=== PATIENT | male | born 1945 | race Caucasian/White ===

== ENCOUNTER 2017-06-30 08:58 | Emergency (ER) | payer MEDICARE, OTHER ==
[~2017-06-30] VITALS: Ht 177.8 cm; Wt 100.0 kg
[2017-06-30] MEDS ORDERED: CLONAZEPAM1 MG PO (09:20)
[2017-06-30] MEDS ORDERED: CARB/LEVO1 TA5 PO (09:21)
[2017-06-30] MEDS ORDERED: ELIQUIS5 MG PO (09:21)
[2017-06-30] MEDS ORDERED: METFORMIN500 MG PO (09:22)
[2017-06-30] MEDS ORDERED: FAMOTIDINE20 M1 PO (09:22)
[2017-06-30] MEDS ORDERED: VENTOLIN H108 MCG/AC IN (09:23)
[2017-06-30] MEDS ORDERED: VENLAFAXINE HCL75 M1 PO (09:24)
[2017-06-30] MEDS ORDERED: TRAZODONE50 MG PO (09:24)
[2017-06-30] MEDS ORDERED: PRIMIDONE50 MG PO (09:25)
[2017-06-30] MEDS ORDERED: METO25TAB PO (09:26)
[2017-06-30] MEDS ORDERED: AMANTADINE100 MG PO (09:27)
[2017-06-30] MEDS ORDERED: WELLBUTRIN XL300 MG PO (09:27)
[2017-06-30] MEDS ORDERED: AMLODIPINE5 MG PO (09:27)
[2017-06-30] MEDS ORDERED: ADVAIR DISK1 IN (09:28)
[2017-06-30] MEDS ORDERED: B121000 MCG PO (09:28)
[2017-06-30] MEDS ORDERED: ATORVASTATIN CA10 MG PO (09:29)
[2017-06-30] MEDS ORDERED: ROPINIROLE0.5 MG PO (09:30)
[2017-06-30] MEDS ORDERED: CEPACOL SORE TH1 LO4 (09:32)
[2017-06-30 09:57] LABS: HEMOGLOBIN 12.4 g/dl (14.0-18.0); IMMATURE GRANULOCYTES 1.2 % (0.0-1.0); MEAN CELL VOLUME 83.9 fL CALC (80.0-100.0); MEAN CORPUSCULAR HGB 27.4 pG CALC (26.0-32.0); MEAN CORPUSCULAR HGB CONC 32.6 g/L CALC (32.0-36.0); NEUT# 5.82 thou/uL (1.82-7.42); RED BLOOD COUNT 4.53 mill/uL (4.70-6.10); RED CELL DISTRI WIDTH 13.5 % (11.5-15.5)
[2017-06-30] MEDS ORDERED: ZITHROMAX250 MG PO (10:19)
[2017-06-30] MEDS ORDERED: MEDDOSEPAK PO (10:19)
[2017-06-30 10:30] VITALS: BP 129/64
== END 2017-06-30 10:30 | disposition home or self-care (01) ==
LOC: ED 08:58
PROVIDERS: Emergency Medicine
DX: J40 Bronchitis, not specified as acute or chronic (principal); J44.9 Chronic obstructive pulmonary disease, unspecified; I10 Essential (primary) hypertension; E11.9 Type 2 diabetes mellitus without complications; F32.9 Major depressive disorder, single episode, unspecified; F43.10 Post-traumatic stress disorder, unspecified; E78.5 Hyperlipidemia, unspecified; G24.01 Drug induced subacute dyskinesia; Z86.718 Personal history of other venous thrombosis and embolism

== ENCOUNTER 2017-08-09 17:35 | Emergency (ER) | payer MEDICARE, OTHER ==
[~2017-08-09] VITALS: Ht 177.8 cm; Wt 110.0 kg
[~2017-08-09 17:35] MED LIST: ADVAIR DISK1 IN; AMANTADINE100 MG PO; AMLODIPINE5 MG PO; ATORVASTATIN CA10 MG PO; B121000 MCG PO; CARB/LEVO1 TA5 PO; CEPACOL SORE TH1 LO4; CLONAZEPAM1 MG PO; ELIQUIS5 MG PO; FAMOTIDINE20 M1 PO; MEDDOSEPAK PO; METFORMIN500 MG PO; METO25TAB PO; PRIMIDONE50 MG PO; ROPINIROLE0.5 MG PO; TRAZODONE50 MG PO; VENLAFAXINE HCL75 M1 PO; VENTOLIN H108 MCG/AC IN; WELLBUTRIN XL300 MG PO; ZITHROMAX250 MG PO
[2017-08-09 18:18] LABS: HEMATOCRIT 39.9 % (39.0-50.0); HEMOGLOBIN 12.8 g/dl (14.0-18.0); IMMATURE GRANULOCYTES 0.6 % (0.0-1.0); MEAN CELL VOLUME 83.1 fL CALC (80.0-100.0); MEAN CORPUSCULAR HGB 26.7 pG CALC (26.0-32.0); MEAN CORPUSCULAR HGB CONC 32.1 g/L CALC (32.0-36.0); NEUT# 4.17 thou/uL (1.82-7.42); RED BLOOD COUNT 4.8 mill/uL (4.70-6.10); RED CELL DISTRI WIDTH 14.5 % (11.5-15.5)
[2017-08-09 18:19] LABS: URINE BILIRUBIN - DIPSTICK NEGATIVE (NEGATIVE); URINE BLOOD DIPSTICK NEGATIVE (NEGATIVE); URINE COLOR YELLOW; URINE GLUCOSE - DIPSTICK NEGATIVE (NEGATIVE); URINE KETONE NEGATIVE (NEGATIVE); URINE LEUK ESTERASE NEGATIVE (NEGATIVE); URINE NITRITE - DIPSTICK NEGATIVE (Negative); URINE PH 5.5 (4.5-8.0); URINE PROTEIN - DIPSTICK NEGATIVE (NEG-TRACE); URINE SPECIFIC GRAVITY >=1.030; URINE UROBILINOGEN - DIPSTICK 0.2 E.U./dL (0.2)
[2017-08-09 18:21] LABS: URINE CLARITY CLEAR
[2017-08-09] MEDS ORDERED: RHINOCORT NAB (18:39)
[2017-08-09] MEDS ORDERED: VENTOLIN HFA IN (18:44)
[2017-08-09 19:23] LABS: ALKALINE PHOSPHATASE 110 u/l (38-126); ANION GAP 13 (6-22 (CALC)); BILIRUBIN, TOTAL 0.5 mg/dL (0.0-1.4); BUN 17 mg/dL (8-23); BUN/CREATININE RATIO 27 (12-20 (CALC)); CARBON DIOXIDE 27 mmol/l (22-30); CHLORIDE 103 mmol/l (95-108); CREATININE 0.6 mg/dL (0.7-1.3); GFR > 60 ML/MIN (>=60 (CALC)); GFR FOR AFR.AMER. > 60 ML/MIN (>=60 (CALC)); POTASSIUM 4.2 mmol/l (3.5-5.1); SGOT/AST 20 u/l (19-48); SGPT/ALT 22 u/l (11-66); SODIUM 138 mmol/l (137-146); TOTAL PROTEIN 7.2 g/dL (6.3-8.2)
[2017-08-09 19:33] VITALS: BP 123/64
== END 2017-08-09 19:42 | disposition home or self-care (01) ==
LOC: ED 17:35
PROVIDERS: Emergency Medicine
DX: S20.212A Contusion of left front wall of thorax, initial encounter (principal); E11.9 Type 2 diabetes mellitus without complications; J44.9 Chronic obstructive pulmonary disease, unspecified; I10 Essential (primary) hypertension; E78.5 Hyperlipidemia, unspecified; I25.10 Atherosclerotic heart disease of native coronary artery without angina pectoris; W22.8XXA Striking against or struck by other objects, initial encounter; Y93.89 Activity, other specified; Y92.098 Other place in other non-institutional residence as the place of occurrence of the external cause; Z86.711 Personal history of pulmonary embolism; Z86.718 Personal history of other venous thrombosis and embolism

== ENCOUNTER 2017-12-21 17:30 | Emergency (ER) | payer MEDICARE, OTHER ==
[~2017-12-21] VITALS: Ht 177.8 cm; Wt 125.0 kg
[~2017-12-21 17:30] MED LIST changes: +RHINOCORT NAB; +VENTOLIN HFA IN
[2017-12-21 19:24] LABS: HEMOGLOBIN 12.6 g/dl (14.0-18.0); RED BLOOD COUNT 4.56 mill/uL (4.70-6.10)
[2017-12-21 19:25] LABS: HEMATOCRIT 38.3 % (39.0-50.0); IMMATURE GRANULOCYTES 0.5 % (0.0-5.0); MEAN CORPUSCULAR HGB 27.6 pG CALC (26.0-32.0); MEAN CORPUSCULAR HGB CONC 32.9 g/L CALC (32.0-36.0); NEUT# 3.73 thou/uL (1.82-7.42); RED CELL DISTRI WIDTH 15.6 % (11.5-15.5)
[2017-12-21 19:48] LABS: ALBUMIN 3.4 g/dL (3.2-5.0); ALKALINE PHOSPHATASE 107 u/l (38-126); ANION GAP 15 (6-22 (CALC)); BILIRUBIN, TOTAL 0.5 mg/dL (0.0-1.4); BUN 15 mg/dL (8-23); BUN/CREATININE RATIO 23 (12-20 (CALC)); CARBON DIOXIDE 21 mmol/l (22-30); CHLORIDE 104 mmol/l (95-108); CREATININE 0.7 mg/dL (0.7-1.3); GFR > 60 ML/MIN (>=60 (CALC)); GFR FOR AFR.AMER. > 60 ML/MIN (>=60 (CALC)); POTASSIUM 4.3 mmol/l (3.5-5.1); SGOT/AST 16 u/l (19-48); SODIUM 136 mmol/l (137-146); TOTAL PROTEIN 6.1 g/dL (6.3-8.2)
[2017-12-21] MEDS ORDERED: BACTRIM DS1 TAB PO (19:54)
[2017-12-21 20:24] VITALS: BP 127/69
== END 2017-12-21 20:24 | disposition home or self-care (01) ==
LOC: ED 17:30
PROVIDERS: Emergency Medicine
DX: T81.41XA Infection following a procedure, superficial incisional surgical site, initial encounter (principal); I10 Essential (primary) hypertension; E11.9 Type 2 diabetes mellitus without complications; F32.9 Major depressive disorder, single episode, unspecified; F43.10 Post-traumatic stress disorder, unspecified; G24.01 Drug induced subacute dyskinesia; I25.10 Atherosclerotic heart disease of native coronary artery without angina pectoris; E78.5 Hyperlipidemia, unspecified; B95.62 Methicillin resistant Staphylococcus aureus infection as the cause of diseases classified elsewhere; Y83.8 Other surgical procedures as the cause of abnormal reaction of the patient, or of later complication, without mention of misadventure at the time of the procedure; Z85.828 Personal history of other malignant neoplasm of skin; Z86.711 Personal history of pulmonary embolism; Z86.718 Personal history of other venous thrombosis and embolism

== ENCOUNTER 2018-01-24 11:51 | Emergency (ER) | payer MEDICARE, OTHER ==
[~2018-01-24] VITALS: Ht 177.8 cm; Wt 128.0 kg
[~2018-01-24 11:51] MED LIST changes: +BACTRIM DS1 TAB PO
[2018-01-24 12:38] LABS: HEMOGLOBIN 13.6 g/dl (14.0-18.0); IMMATURE GRANULOCYTES 0.5 % (0.0-5.0); MEAN CELL VOLUME 86.3 fL CALC (80.0-100.0); MEAN CORPUSCULAR HGB 28.6 pG CALC (26.0-32.0); MEAN CORPUSCULAR HGB CONC 33.2 g/L CALC (32.0-36.0); NEUT# 6.14 thou/uL (1.82-7.42); RED BLOOD COUNT 4.75 mill/uL (4.70-6.10); RED CELL DISTRI WIDTH 14.6 % (11.5-15.5)
[2018-01-24] MEDS ORDERED: SINEMET CR 50/200 PO (13:00)
[2018-01-24] MEDS ORDERED: LEVEMIR100 UNIT/M SC (13:08)
[2018-01-24] MEDS ORDERED: HUMALOG100 UNIT/M SC (13:09)
[2018-01-24] MEDS ORDERED: CLEOCIN150 MG PO (13:10)
[2018-01-24 13:21] VITALS: BP 146/86
== END 2018-01-24 13:34 | disposition home or self-care (01) ==
LOC: ED 11:51
PROVIDERS: Emergency Medicine
DX: S86.912A Strain of unspecified muscle(s) and tendon(s) at lower leg level, left leg, initial encounter (principal); M79.662 Pain in left lower leg; R22.42 Localized swelling, mass and lump, left lower limb; Z86.718 Personal history of other venous thrombosis and embolism; X58.XXXA Exposure to other specified factors, initial encounter; Y93.01 Activity, walking, marching and hiking; Y92.129 Unspecified place in nursing home as the place of occurrence of the external cause

== ENCOUNTER 2018-02-22 11:35 | Emergency (ER) | payer MEDICARE, OTHER ==
[~2018-02-22] VITALS: Ht 177.8 cm; Wt 110.0 kg
[~2018-02-22 11:35] MED LIST changes: +CLEOCIN150 MG PO; +HUMALOG100 UNIT/M SC; +LEVEMIR100 UNIT/M SC; +SINEMET CR 50/200 PO
--- NOTE | 2018-02-22 11:50 | NUR ---
BREATHING TREATMENT GIVEN BACK TO BACK USING A FACE MASK. BREATHING TECH. FOR GOOD DEPOSITION TO THE LUNGS.
[2018-02-22 12:10] LABS: HEMATOCRIT 40.6 % (39.0-50.0); HEMOGLOBIN 13.3 g/dl (14.0-18.0); IMMATURE GRANULOCYTES 0.9 % (0.0-5.0); MEAN CELL VOLUME 85.3 fL CALC (80.0-100.0); MEAN CORPUSCULAR HGB 27.9 pG CALC (26.0-32.0); MEAN CORPUSCULAR HGB CONC 32.8 g/L CALC (32.0-36.0); NEUT# 7.29 thou/uL (1.82-7.42); RED BLOOD COUNT 4.76 mill/uL (4.70-6.10); RED CELL DISTRI WIDTH 13.4 % (11.5-15.5)
[2018-02-22 12:27] LABS: INTERNATIONAL NORMALIZED RATIO 0.9 RATIO (0.7-1.3); PROTHROMBIN TIME 9.9 SECONDS (9.0-12.5)
[2018-02-22 12:33] LABS: ALBUMIN 3.6 g/dL (3.2-5.0); ALKALINE PHOSPHATASE 100 u/l (38-126); BILIRUBIN, TOTAL 0.7 mg/dL (0.0-1.4); BUN 16 mg/dL (8-23); BUN/CREATININE RATIO 19 (12-20 (CALC)); CARBON DIOXIDE 24 mmol/l (22-30); CHLORIDE 102 mmol/l (95-108); CREATININE 0.8 mg/dL (0.7-1.3); GFR > 60 ML/MIN (>=60 (CALC)); GFR FOR AFR.AMER. > 60 ML/MIN (>=60 (CALC)); SGOT/AST 23 u/l (19-48); SODIUM 139 mmol/l (137-146); TOTAL PROTEIN 6.6 g/dL (6.3-8.2)
[2018-02-22 12:36] LABS: ANION GAP 18 (6-22 (CALC)); POTASSIUM 5.2 mmol/l (3.5-5.1)
[2018-02-22 12:45] LABS: MYOGLOBIN 58 ng/mL (0 - 121)
[2018-02-22] MEDS ORDERED: CLINDAMYCIN HC150 MG PO (13:44)
[2018-02-22] MEDS ORDERED: MUCINEX600 MG PO (13:46)
[2018-02-22 14:28] VITALS: BP 132/68
== END 2018-02-22 14:38 | disposition home or self-care (01) ==
LOC: ED 11:35 → ED-I 13:21 → ED 14:38
PROVIDERS: Emergency Medicine
DX: J06.9 Acute upper respiratory infection, unspecified (principal); J44.9 Chronic obstructive pulmonary disease, unspecified; I10 Essential (primary) hypertension; E11.9 Type 2 diabetes mellitus without complications; F43.10 Post-traumatic stress disorder, unspecified; I25.10 Atherosclerotic heart disease of native coronary artery without angina pectoris; E78.5 Hyperlipidemia, unspecified; Z86.711 Personal history of pulmonary embolism; Z86.718 Personal history of other venous thrombosis and embolism; R06.02 Shortness of breath

== ENCOUNTER → 2018-04-04 | Outpatient (REF) | payer MEDICARE, OTHER ==
[~2018-04-04] MED LIST changes: +CLINDAMYCIN HC150 MG PO; +MUCINEX600 MG PO
== END | disposition home or self-care (01) ==
LOC: LAB 08:36
PROVIDERS: ATTEND Nurse Practitioner Family
DX: E11.49 Type 2 diabetes mellitus with other diabetic neurological complication (principal)

== ENCOUNTER 2018-07-15 10:27 | Observation (INO) | payer MEDICARE, OTHER ==
[~2018-07-15] VITALS: Ht 177.8 cm; Wt 124.0 kg
[2018-07-15 11:15] LABS: HEMATOCRIT 42.3 % (39.0-50.0); HEMOGLOBIN 13.7 g/dl (14.0-18.0); IMMATURE GRANULOCYTES 0.9 % (0.0-5.0); MEAN CELL VOLUME 82.1 fL CALC (80.0-100.0); MEAN CORPUSCULAR HGB 26.6 pG CALC (26.0-32.0); MEAN CORPUSCULAR HGB CONC 32.4 g/L CALC (32.0-36.0); NEUT# 9.31 thou/uL (1.82-7.42); RED BLOOD COUNT 5.15 mill/uL (4.70-6.10)
[2018-07-15 11:24] LABS: ALBUMIN 4.1 g/dL (3.2-5.0); ALKALINE PHOSPHATASE 108 u/l (38-126); ANION GAP 17 (6-22 (CALC)); BUN 19 mg/dL (8-23); BUN/CREATININE RATIO 24 (12-20 (CALC)); CARBON DIOXIDE 23 mmol/l (22-30); CHLORIDE 102 mmol/l (95-108); CREATININE 0.8 mg/dL (0.7-1.3); GFR > 60 ML/MIN (>=60 (CALC)); GFR FOR AFR.AMER. > 60 ML/MIN (>=60 (CALC)); LIPASE 220 u/l (23-300); POTASSIUM 4.3 mmol/l (3.5-5.1); SGOT/AST 17 u/l (19-48); SODIUM 138 mmol/l (137-146); TOTAL PROTEIN 6.8 g/dL (6.3-8.2)
[2018-07-15 11:25] LABS: BILIRUBIN, TOTAL 1.2 mg/dL (0.0-1.4)
[2018-07-15 14:40] LABS: URINE BILIRUBIN - DIPSTICK NEGATIVE (NEGATIVE); URINE BLOOD DIPSTICK NEGATIVE (NEGATIVE); URINE COLOR YELLOW; URINE GLUCOSE - DIPSTICK >=1000 mg/dL (NEGATIVE); URINE KETONE NEGATIVE (NEGATIVE); URINE LEUK ESTERASE NEGATIVE (Negative); URINE NITRITE - DIPSTICK NEGATIVE (Negative); URINE PROTEIN - DIPSTICK NEGATIVE (NEG-TRACE); URINE UROBILINOGEN - DIPSTICK 0.2 E.U./dL (0.2)
[2018-07-15 14:44] LABS: URINE CLARITY CLEAR
[2018-07-15 17:10] VITALS: BP 155/88
[2018-07-15 18:45] VITALS: BP 123/78
[2018-07-15 23:45] VITALS: BP 109/64
[2018-07-16] VITALS (13 sets, daily range): BP systolic 97–118; BP diastolic 58–75
[2018-07-16 06:21] LABS: ALBUMIN 3.6 g/dL (3.2-5.0); ALKALINE PHOSPHATASE 89 u/l (38-126); ANION GAP 15 (6-22 (CALC)); BILIRUBIN, TOTAL 1.6 mg/dL (0.0-1.4); BUN 16 mg/dL (8-23); BUN/CREATININE RATIO 23 (12-20 (CALC)); CALCULATED LDLCHOLESTEROL 45 mg/dL (62-129 (CALC)); CARBON DIOXIDE 23 mmol/l (22-30); CHLORIDE 105 mmol/l (95-108); CHOLESTEROL HDL RATIO 2.9 (<4.4 (CALC)); CREATININE 0.7 mg/dL (0.7-1.3); GFR > 60 ML/MIN (>=60 (CALC)); GFR FOR AFR.AMER. > 60 ML/MIN (>=60 (CALC)); HDL CHOLESTEROL 36 mg/dL (>=40); POTASSIUM 4.2 mmol/l (3.5-5.1); SGOT/AST 12 u/l (19-48); SODIUM 139 mmol/l (137-146); TOTAL CHOLESTEROL 105 mg/dl (0-199); TOTAL PROTEIN 6.3 g/dL (6.3-8.2); TOTAL TRIGLYCERIDES 117 mg/dl (30-149); VLDL CHOLESTROL 23 mg/dl (0-38 (CALC))
[2018-07-16 06:25] LABS: HEMATOCRIT 38.8 % (39.0-50.0); HEMOGLOBIN 12.6 g/dl (14.0-18.0); IMMATURE GRANULOCYTES 0.8 % (0.0-5.0); MEAN CELL VOLUME 82.7 fL CALC (80.0-100.0); MEAN CORPUSCULAR HGB 26.9 pG CALC (26.0-32.0); MEAN CORPUSCULAR HGB CONC 32.5 g/L CALC (32.0-36.0); NEUT# 7.93 thou/uL (1.82-7.42); RED BLOOD COUNT 4.69 mill/uL (4.70-6.10); RED CELL DISTRI WIDTH 14.2 % (11.5-15.5)
[2018-07-16] MEDS ORDERED: PROTONIX40 MG PO (08:11)
== END 2018-07-16 10:11 ==
LOC: ED 10:27 → ED-I 11:14 → ED 15:48 → ICU 15:49 → MS2 15:49 → ICU 07-16 00:20
PROVIDERS: Emergency Medicine; ADMIT Internal Medicine Geriatric Medicine; ATTEND Internal Medicine Geriatric Medicine
DX: R07.89 Other chest pain (principal); I10 Essential (primary) hypertension; E11.9 Type 2 diabetes mellitus without complications; I25.10 Atherosclerotic heart disease of native coronary artery without angina pectoris; J44.9 Chronic obstructive pulmonary disease, unspecified; F32.9 Major depressive disorder, single episode, unspecified; E78.5 Hyperlipidemia, unspecified; F41.1 Generalized anxiety disorder; K21.9 Gastro-esophageal reflux disease without esophagitis; K27.9 Peptic ulcer, site unspecified, unspecified as acute or chronic, without hemorrhage or perforation; E03.9 Hypothyroidism, unspecified; Z86.711 Personal history of pulmonary embolism; Z86.718 Personal history of other venous thrombosis and embolism; M47.812 Spondylosis without myelopathy or radiculopathy, cervical region; R06.02 Shortness of breath

== ENCOUNTER 2018-07-20 06:35 | Emergency (ER) | payer MEDICARE, OTHER ==
[~2018-07-20] VITALS: Ht 177.8 cm; Wt 123.2 kg
[~2018-07-20 06:35] MED LIST changes: +PROTONIX40 MG PO
[2018-07-20 07:17] LABS: HEMATOCRIT 39.1 % (39.0-50.0); HEMOGLOBIN 12.7 g/dl (14.0-18.0); IMMATURE GRANULOCYTES 0.5 % (0.0-5.0); MEAN CELL VOLUME 81.8 fL CALC (80.0-100.0); MEAN CORPUSCULAR HGB 26.6 pG CALC (26.0-32.0); MEAN CORPUSCULAR HGB CONC 32.5 g/L CALC (32.0-36.0); NEUT# 9.37 thou/uL (1.82-7.42); RED BLOOD COUNT 4.78 mill/uL (4.70-6.10); RED CELL DISTRI WIDTH 14.1 % (11.5-15.5)
[2018-07-20 07:28] LABS: ALBUMIN 4.1 g/dL (3.2-5.0); ALKALINE PHOSPHATASE 106 u/l (38-126); ANION GAP 16 (6-22 (CALC)); BUN 16 mg/dL (8-23); BUN/CREATININE RATIO 20 (12-20 (CALC)); CARBON DIOXIDE 24 mmol/l (22-30); CHLORIDE 101 mmol/l (95-108); CREATININE 0.8 mg/dL (0.7-1.3); GFR > 60 ML/MIN (>=60 (CALC)); GFR FOR AFR.AMER. > 60 ML/MIN (>=60 (CALC)); SGOT/AST 15 u/l (19-48); SODIUM 137 mmol/l (137-146); TOTAL PROTEIN 7.5 g/dL (6.3-8.2)
[2018-07-20 07:41] LABS: MYOGLOBIN 35 ng/mL (0 - 121)
[2018-07-20] MEDS ORDERED: ATORVASTATIN CA10 MG PO (08:43)
[2018-07-20] MEDS ORDERED: FUROSEMIDE40 MG PO (08:44)
[2018-07-20] MEDS ORDERED: FAMOTIDINE20 M3 PO (08:44)
[2018-07-20] MEDS ORDERED: WIXELA PO (08:46)
[2018-07-20] MEDS ORDERED: TEMAZEPAM15 MG PO (08:47)
[2018-07-20] MEDS ORDERED: [UNRECOGNIZED DRUG - OTHER] PO (08:48)
[2018-07-20] MEDS ORDERED: LEVOFLOXACIN750 MG PO (08:48)
[2018-07-20] MEDS ORDERED: MEDDOSEPAK PO (10:49)
[2018-07-20] MEDS ORDERED: ALBUTEROL SUL0.083 % IN (10:49)
[2018-07-20 11:47] VITALS: BP 119/58
== END 2018-07-20 11:47 | disposition home or self-care (01) ==
LOC: ED 06:35
PROVIDERS: Family Medicine
DX: J44.1 Chronic obstructive pulmonary disease with (acute) exacerbation (principal); R07.9 Chest pain, unspecified; I10 Essential (primary) hypertension; E11.9 Type 2 diabetes mellitus without complications; I25.10 Atherosclerotic heart disease of native coronary artery without angina pectoris; Z86.711 Personal history of pulmonary embolism; Z86.718 Personal history of other venous thrombosis and embolism
CPT/HCPCS: Q9967

== ENCOUNTER → 2018-08-23 | Day surgery (SDC) | payer MEDICARE, OTHER ==
[~2018-08-23] VITALS: Ht 177.8 cm; Wt 120.0 kg
[~2018-08-23] MED LIST changes: +ALBUTEROL SUL0.083 % IN; +FAMOTIDINE20 M3 PO; +FUROSEMIDE40 MG PO; +LEVOFLOXACIN750 MG PO; +TEMAZEPAM15 MG PO; +WIXELA PO; +[UNRECOGNIZED DRUG - OTHER] PO
[2018-08-23 12:01] VITALS: BP 123/77
== END | disposition home or self-care (01) ==
LOC: ENDO 08:26 → ORM 15:15 → ENDO 15:15
PROVIDERS: ATTEND Internal Medicine Gastroenterology
PROC: 0DBK8ZX Excision of Ascending Colon, Via Natural or Artificial Opening Endoscopic, Diagnostic (ICD-10-PCS; principal; 2018-08-23)
PROC: 0DBL8ZX Excision of Transverse Colon, Via Natural or Artificial Opening Endoscopic, Diagnostic (ICD-10-PCS; 2018-08-23)
PROC: 0DBN8ZX Excision of Sigmoid Colon, Via Natural or Artificial Opening Endoscopic, Diagnostic (ICD-10-PCS; 2018-08-23)
PROC: 0DBM8ZX Excision of Descending Colon, Via Natural or Artificial Opening Endoscopic, Diagnostic (ICD-10-PCS; 2018-08-23)
DX: D12.2 Benign neoplasm of ascending colon (principal); D12.4 Benign neoplasm of descending colon; D12.3 Benign neoplasm of transverse colon; D12.5 Benign neoplasm of sigmoid colon; K63.5 Polyp of colon; K64.4 Residual hemorrhoidal skin tags; I10 Essential (primary) hypertension; E11.9 Type 2 diabetes mellitus without complications; I25.10 Atherosclerotic heart disease of native coronary artery without angina pectoris; J44.9 Chronic obstructive pulmonary disease, unspecified; G20 Parkinson's disease

== ENCOUNTER 2018-10-18 11:44 | Emergency (ER) | payer MEDICARE, OTHER ==
[~2018-10-18] VITALS: Ht 177.8 cm; Wt 122.7 kg
[~2018-10-18 11:44] MED LIST changes: -FUROSEMIDE40 MG PO; +LASIX 40 MG TAB40 MG PO; -TEMAZEPAM15 MG PO; -VENTOLIN H108 MCG/AC IN; +VENTOLIN H108 MCG/AC PO
[2018-10-18] MEDS ORDERED: AMLODIPINE BESYL5 MG PO (13:00)
[2018-10-18] MEDS ORDERED: JANUVIA100 MG PO (13:00)
[2018-10-18] MEDS ORDERED: WIXELA INHUB 251 AER PO (13:03)
[2018-10-18] MEDS ORDERED: TEMAZEPAM15 MG PO (13:05)
[2018-10-18] MEDS ORDERED: TYLENOL325 M2 PO (13:05)
[2018-10-18] MEDS ORDERED: PROVENTIL0.083 % NEB (13:06)
[2018-10-18] MEDS ORDERED: HUMALOG KW100 UNIT/M SC (13:07)
[2018-10-18 14:45] VITALS: BP 129/79
== END 2018-10-18 14:45 | disposition home or self-care (01) ==
LOC: ED 11:44
DX: R60.0 Localized edema (principal); I10 Essential (primary) hypertension; E11.9 Type 2 diabetes mellitus without complications; I25.10 Atherosclerotic heart disease of native coronary artery without angina pectoris; Z79.4 Long term (current) use of insulin; Z79.01 Long term (current) use of anticoagulants; Z86.711 Personal history of pulmonary embolism; Z86.718 Personal history of other venous thrombosis and embolism; M79.605 Pain in left leg; M79.89 Other specified soft tissue disorders

== ENCOUNTER 2019-04-18 | Emergency (ER) | payer MEDICARE, OTHER ==
[~2019-04-18] MED LIST changes: +AMLODIPINE BESYL5 MG PO; +HUMALOG KW100 UNIT/M SC; +JANUVIA100 MG PO; +PROVENTIL0.083 % NEB; +TEMAZEPAM15 MG PO; +TYLENOL325 M2 PO; +WIXELA INHUB 251 AER PO
[2019-04-18 10:41] LABS: HEMATOCRIT 47.2 % (39.0-50.0); HEMOGLOBIN 14.9 g/dl (14.0-18.0); IMMATURE GRANULOCYTES 0.6 % (0.0-5.0); MEAN CELL VOLUME 81.4 fL CALC (80.0-100.0); MEAN CORPUSCULAR HGB 25.7 pG CALC (26.0-32.0); MEAN CORPUSCULAR HGB CONC 31.6 g/L CALC (32.0-36.0); NEUT# 3.4 thou/uL (1.82-7.42); RED BLOOD COUNT 5.8 mill/uL (4.70-6.10); RED CELL DISTRI WIDTH 15.2 % (11.5-15.5)
[2019-04-18 10:48] LABS: ANION GAP 15 (6-22 (CALC)); BUN 19 mg/dL (8-23); BUN/CREATININE RATIO 28 (12-20 (CALC)); CARBON DIOXIDE 20 mmol/l (22-30); CHLORIDE 106 mmol/l (95-108); CREATININE 0.7 mg/dL (0.7-1.3); GFR > 60 ML/MIN (>=60 (CALC)); GFR FOR AFR.AMER. > 60 ML/MIN (>=60 (CALC)); POTASSIUM 4.2 mmol/l (3.5-5.1); SODIUM 137 mmol/l (137-146)
[2019-04-18] MEDS ORDERED: PROAIR HFA IN (10:55)
[2019-04-18] MEDS ORDERED: TRULICITY0.75 MG/0. SC (10:56)
[2019-04-18] MEDS ORDERED: TRELEGY ELLIPTA1 AER IN (10:57)
[2019-04-18] MEDS ORDERED: FERR SULFATE325 MG PO (10:57)
[2019-04-18] MEDS ORDERED: JARDIANCE10 MG PO (10:58)
== END 2019-04-18 12:18 | disposition home or self-care (01) ==
PROVIDERS: Family Medicine
DX: J06.9 Acute upper respiratory infection, unspecified (principal); I10 Essential (primary) hypertension; E11.9 Type 2 diabetes mellitus without complications; J44.9 Chronic obstructive pulmonary disease, unspecified; I25.10 Atherosclerotic heart disease of native coronary artery without angina pectoris; Z86.711 Personal history of pulmonary embolism; Z86.718 Personal history of other venous thrombosis and embolism; Z79.4 Long term (current) use of insulin

== ENCOUNTER 2019-11-14 09:25 | Day surgery (SDC) | payer MEDICARE, OTHER ==
[~2019-11-14 09:25] MED LIST changes: +FERR SULFATE325 MG PO; +JARDIANCE10 MG PO; +PROAIR HFA IN; +TRELEGY ELLIPTA1 AER IN; +TRULICITY0.75 MG/0. SC
[2019-11-14 12:55] VITALS: BP 111/75
== END 2019-11-14 12:45 ==
LOC: ENDO 09:25 → ORM 12:00 → ENDO 12:00
PROVIDERS: ATTEND Internal Medicine Gastroenterology
PROC: 0DBL8ZX Excision of Transverse Colon, Via Natural or Artificial Opening Endoscopic, Diagnostic (ICD-10-PCS; principal; 2019-11-14)
PROC: 0DBH8ZX Excision of Cecum, Via Natural or Artificial Opening Endoscopic, Diagnostic (ICD-10-PCS; 2019-11-14)
PROC: 3E0H8GC Introduction of Other Therapeutic Substance into Lower GI, Via Natural or Artificial Opening Endoscopic (ICD-10-PCS; 2019-11-14)
PROC: 0DB48ZX Excision of Esophagogastric Junction, Via Natural or Artificial Opening Endoscopic, Diagnostic (ICD-10-PCS; 2019-11-14)
PROC: 0DB98ZX Excision of Duodenum, Via Natural or Artificial Opening Endoscopic, Diagnostic (ICD-10-PCS; 2019-11-14)
DX: K57.31 Diverticulosis of large intestine without perforation or abscess with bleeding (principal); D12.3 Benign neoplasm of transverse colon; D12.0 Benign neoplasm of cecum; K64.4 Residual hemorrhoidal skin tags; K64.8 Other hemorrhoids; K29.71 Gastritis, unspecified, with bleeding; D13.2 Benign neoplasm of duodenum; Q40.2 Other specified congenital malformations of stomach; K44.9 Diaphragmatic hernia without obstruction or gangrene; K22.70 Barrett's esophagus without dysplasia; I10 Essential (primary) hypertension; E11.9 Type 2 diabetes mellitus without complications; I25.10 Atherosclerotic heart disease of native coronary artery without angina pectoris; H54.62 Unqualified visual loss, left eye, normal vision right eye; F32.9 Major depressive disorder, single episode, unspecified; G20 Parkinson's disease; I49.9 Cardiac arrhythmia, unspecified; F41.9 Anxiety disorder, unspecified; J44.9 Chronic obstructive pulmonary disease, unspecified; Z79.84 Long term (current) use of oral hypoglycemic drugs; Z86.010 Personal history of colon polyps; Z20.828 Contact with and (suspected) exposure to other viral communicable diseases

== ENCOUNTER 2019-12-18 10:28 | Inpatient (IN) | payer MEDICARE, OTHER ==
[~2019-12-18] VITALS: Ht 177.8 cm; Wt 119.0 kg
--- NOTE | 2019-12-18 10:30 | NUR ---
PT TO ROOM VIA EMS
--- NOTE | 2019-12-18 11:05 | NUR ---
LAB RESULTS REFLECTING FLU & COVID POSITIVE RESULTS AT BEDSIDE WITH PT. RECEIVED FROM [facility].
[2019-12-18 11:07] LABS: HEMOGLOBIN 15.4 g/dl (14.0-18.0); IMMATURE GRANULOCYTES 0.4 % (0.0-5.0); MEAN CELL VOLUME 82.6 fL CALC (80.0-100.0); MEAN CORPUSCULAR HGB 27.1 pG CALC (26.0-32.0); MEAN CORPUSCULAR HGB CONC 32.8 g/dL CAL (32.0-36.0); NEUT# 3.96 thou/uL (1.82-7.42); RED BLOOD COUNT 5.69 mill/uL (4.70-6.10); RED CELL DISTRI WIDTH 14.1 % (11.5-15.5)
[2019-12-18 11:26] LABS: ALKALINE PHOSPHATASE 73 u/l (38-126); ANION GAP 16 (6-22 (CALC)); BILIRUBIN, TOTAL 0.8 mg/dL (0.0-1.4); BUN 15 mg/dL (8-23); BUN/CREATININE RATIO 20 (12-20 (CALC)); CARBON DIOXIDE 22 mmol/l (22-30); CHLORIDE 104 mmol/l (95-108); CREATININE 0.7 mg/dL (0.7-1.3); GFR > 60 ML/MIN (>=60 (CALC)); GFR FOR AFR.AMER. > 60 ML/MIN (>=60 (CALC)); POTASSIUM 4.1 mmol/l (3.5-5.1); SGOT/AST 22 u/l (19-48); SODIUM 139 mmol/l (137-146); TOTAL PROTEIN 7.1 g/dL (6.3-8.2)
--- NOTE | 2019-12-18 11:30 | NUR ---
PT RESTING WITH EYES CLOSED; NO S/SX OF DISTRESS NOTED; CALL GLASS WITHIN REACH; WILL CONTINUE TO MONITOR.
[2019-12-18 11:38] LABS: MYOGLOBIN 62 ng/mL (0 - 121)
--- NOTE | 2019-12-18 12:03 | NUR ---
PT WITH NO COMPLAINTS, STABLE ON MONITOR. BED IN LOW POSITION. CALL LIGHT WITHIN REACH.
--- NOTE | 2019-12-18 13:08 | NUR ---
IV FLUIDS INFUSING WITHOUT DIFFICULTY. BLANKET PROVIDED.
[2019-12-18 13:13] LABS: URINE BILIRUBIN - DIPSTICK NEGATIVE (NEGATIVE); URINE BLOOD DIPSTICK NEGATIVE (NEGATIVE); URINE COLOR YELLOW; URINE GLUCOSE - DIPSTICK 500 mg/dL (NEGATIVE); URINE KETONE TRACE mg/dL (NEGATIVE); URINE LEUK ESTERASE NEGATIVE (NEGATIVE); URINE NITRITE - DIPSTICK NEGATIVE (Negative); URINE PROTEIN - DIPSTICK TRACE mg/dL (NEG-TRACE); URINE SPECIFIC GRAVITY >=1.030; URINE UROBILINOGEN - DIPSTICK 0.2 E.U./dL (0.2)
--- NOTE | 2019-12-18 14:15 | NUR ---
IV FLUIDS CONTINUE TO INFUSE WITHOUT COMPLICATIONS. VTIALS STABLE. PT SITTING ON SIDE OF BED WITH NO SIGNS OF DISTRESS OR COMPLAINTS.
[2019-12-18] MEDS ORDERED: JANUVIA100 MG PO (14:53)
--- NOTE | 2019-12-18 15:06 | NUR ---
PT REMAINS SITTING ON SIDE OF BED. NO DISTRESS. VITALS STABLE.
--- NOTE | 2019-12-18 16:00 | NUR ---
ATTEMPTED TO CALL REPORT TO [facility]. ADVISED NURSE WILL CALL BACK.
--- NOTE | 2019-12-18 16:09 | NUR ---
PT SITTING ON SIDE OF BED. NO COMPLAINTS. WATER PROVIDED. AWAITING ADMISSION.
--- NOTE | 2019-12-18 16:23 | NUR ---
ATTEMPTED TO CALL AGAIN FOR REPORT. NURSE WAS BUSY, WILL CALL BACK.
--- NOTE | 2019-12-18 16:28 | NUR ---
[facility]
[2019-12-18 17:12] VITALS: BP 142/76
[2019-12-18 20:03] VITALS: BP 138/83
--- NOTE | 2019-12-18 20:45 | NUR ---
PT IN HIGH SUN'S POSITION; A/O X4; PT C/O GENERALIZED WEAKNESS AND MUSCLE ACHES THAT STARTED A WEEK AGO. TELE MONITOR IN PLACE; ENCOURAGE USE OF CALL LIGHT IF ANY ASSISTANCE IS NEEDED; WILL CONTINUE TO MONITOR.
[2019-12-19 00:31] VITALS: BP 130/74; BP 155/98
--- NOTE | 2019-12-19 02:30 | NUR ---
PT UP IN BED; SOILED GOWN; ASSISTED WITH CHANGE; NO COMPLAINTS OR CONCERNS VOICED; CALL GLASS WITHIN REACH; WILL CONTINUE TO MONITOR.
[2019-12-19 04:25] VITALS: BP 138/71
[2019-12-19 05:26] LABS: HEMOGLOBIN 13.6 g/dl (14.0-18.0); IMMATURE GRANULOCYTES 0.7 % (0.0-5.0); MEAN CORPUSCULAR HGB 26.3 pG CALC (26.0-32.0); MEAN CORPUSCULAR HGB CONC 31.6 g/dL CAL (32.0-36.0); NEUT# 2.28 thou/uL (1.82-7.42); RED BLOOD COUNT 5.18 mill/uL (4.70-6.10); RED CELL DISTRI WIDTH 14.3 % (11.5-15.5)
[2019-12-19 05:39] LABS: ALBUMIN 3.4 g/dL (3.2-5.0); ALKALINE PHOSPHATASE 72 u/l (38-126); ANION GAP 14 (6-22 (CALC)); BILIRUBIN, TOTAL 0.7 mg/dL (0.0-1.4); BUN 15 mg/dL (8-23); BUN/CREATININE RATIO 22 (12-20 (CALC)); C-REACTIVE PROTEIN 1.5 mg/dL (0-0.9); CARBON DIOXIDE 21 mmol/l (22-30); CHLORIDE 107 mmol/l (95-108); CREATININE 0.7 mg/dL (0.7-1.3); GFR > 60 ML/MIN (>=60 (CALC)); GFR FOR AFR.AMER. > 60 ML/MIN (>=60 (CALC)); POTASSIUM 4.6 mmol/l (3.5-5.1); SGOT/AST 19 u/l (19-48); SODIUM 137 mmol/l (137-146); TOTAL PROTEIN 6.1 g/dL (6.3-8.2)
[2019-12-19 08:30] VITALS: BP 128/88
--- NOTE | 2019-12-19 08:30 | NUR ---
PT SITTING IN BED EATING BREAKFAST. A&O X3. NO DISTRESS NOTED. COUGH NOTED UPON ENTERING ROOM, PRODUCTIVE IN NATURE WITH A SMALL AMOUNT OF SPUTUM. PT REPORTS IT TO BE HIS "FIRST PRODUCTIVE COUGH SINCE LAST SUNDAY". COVID RESULTS TO BE OBTAINED FROM PCP. DENIES ANY SOB AT THIS TIME. TUNGSTEN TENDER IN PLACE. ASSESSMENT COMPLETED. DISCUSSED POC. CALL LIGHT IN REACH. CONTINUE TO MONITOR.
[2019-12-19 10:30] VITALS: BP 154/90
[2019-12-19] MEDS ORDERED: AZITHROMYCIN500 MG PO (12:04)
[2019-12-19] MEDS ORDERED: DEXAMETHASON6 MG PO (12:04)
--- NOTE | 2019-12-19 13:50 | NUR ---
FLU SWAB SAMPLE OBTAINED ALONG WITH C19 SWAB. UNSUCCESSFUL AT OBTAINING SWAB RESULT FROM PCP DUE TO IT BEING CLOSED. PT TOLERATED WELL.
[2019-12-19 15:00] VITALS: BP 148/89
--- NOTE | 2019-12-19 17:33 | NUR ---
PT SITTING IN BED WATCHING TV. NO OTHER NEEDS AT THIS TIME. CALL LIGHT IN REACH. CONTINUE TO MONITOR.
[2019-12-19 19:10] VITALS: BP 170/95
--- NOTE | 2019-12-19 20:33 | NUR ---
Notified ANAT Brewer on med surg of positive Covid results.
--- NOTE | 2019-12-19 20:49 | NUR ---
PT MEDICATED ORDERS PROVIDE AND ASSESSMENT COMPLETED AT THIS TIME. PT PROVIDED SNACK AT THIS TIME. CALL LIGHT AT BEDSIDE.
[2019-12-20 00:10] VITALS: BP 126/78
--- NOTE | 2019-12-20 02:14 | NUR ---
PT IS AWAKE WATCHING TV W/LIGHTS OUT. PT DENIES ANY NEEDS OR DISTRESS. I ENCOURAGED HIM TO CALL IF ANY NEEDS ARISE, VERBALIZED UNDERSTANDING. CALL LIGHT IN HAND.
[2019-12-20 05:00] VITALS: BP 138/88
--- NOTE | 2019-12-20 05:24 | NUR ---
PT SLEEPING, LIGHTS OUT TV ON. NO S/O DISTRESS NOTED. IVPUMP CLEARED AT THIS TIME. CALL LIGHT AT SIDE.
[2019-12-20 08:35] VITALS: BP 136/86
--- NOTE | 2019-12-20 08:35 | NUR ---
ASSESSMENT IS COMPELTED: IV SITE IS FREE FROM REDNESS OR EDEMA. HR IS REG,PULSESARE STRONG X4, ABD IS SOFT WITH ACTIVE BS. BREATH SOUNDS ARE CLEAR, BILATERALL Y. NO TELE MONITOR CONTINUE TO OSBERVE AND MONITOR.
[2019-12-20 11:15] VITALS: BP 140/79
--- NOTE | 2019-12-20 12:45 | NUR ---
PT IS RELAXING IN BED WATCHING TV. NO DISTRESS NOTED. IV SITE IS FREE FROM REDNESS OR EDEMA.
--- NOTE | 2019-12-20 14:04 | NUR ---
PT HAD HIS TRILOGY. PHARMACY WANTS TO WAIT UNTIL TOMORROW TO START PT ALREADY DID THE ADVAIR.
[2019-12-20 16:36] VITALS: BP 137/84
--- NOTE | 2019-12-20 16:40 | NUR ---
PT IS RELAXING IN BED WITH NO DISTRESS NOTED. IV SITE IS FREE FROM REDNESS OR EDMEA.
[2019-12-20 20:10] VITALS: BP 137/74
--- NOTE | 2019-12-20 21:15 | NUR ---
PT ASSESSEMENT COMPLETED AND MEDICATIONS ADMINISTERED AT THIS TIME. PT ASKING FOR TEA/PROVIDED. PT REPORTS FEELING BETTER THIS EVENING, NO S/O DISTRESS NOTED. CALL LIGHT IN HAND. LIGHTS AND TV ARE ON.
--- NOTE | 2019-12-21 02:47 | NUR ---
PT APPEARS TO BE SLEEPING, LIGHTS ARE OFF AND TV IS ON. NO S/O DISTRESS NOTED. CALL LIGHT W/IN REACH.
[2019-12-21 03:55] VITALS: BP 145/80
--- NOTE | 2019-12-21 04:50 | NUR ---
PT SLEEPING, NO S/O DISTRESS NOTED.
[2019-12-21 05:43] LABS: HEMATOCRIT 42.7 % (39.0-50.0); HEMOGLOBIN 13.8 g/dl (14.0-18.0); IMMATURE GRANULOCYTES 0.7 % (0.0-5.0); MEAN CORPUSCULAR HGB 26.5 pG CALC (26.0-32.0); MEAN CORPUSCULAR HGB CONC 32.3 g/dL CAL (32.0-36.0); NEUT# 2.91 thou/uL (1.82-7.42); RED BLOOD COUNT 5.21 mill/uL (4.70-6.10); RED CELL DISTRI WIDTH 13.9 % (11.5-15.5)
--- NOTE | 2019-12-21 05:48 | NUR ---
PT CALLED, BUT REPORTED IT WAS AN ACCIDENT. PT IS AWAKE IN HIGH FOWLERS WATCHING TV WITH LIGHTS OFF. DENIES ANY NEEDS AND NO S/O DISTRESS NOTED AT THIS TIME.
[2019-12-21 08:10] VITALS: BP 157/77
--- NOTE | 2019-12-21 08:10 | NUR ---
ASSESSMENT IS COMPLETED: IV SITE IS FREE FROM REDNESS OR EDEMA. HR IS REG,PULSES ARE STRONG X4, ABD IS SOFT WITH ACTIVE BS. BREATH SOUNDS ARE CLEAR, BILATERALLY.
--- NOTE | 2019-12-21 12:45 | NUR ---
PT IS RELAXING IN BED AND WATCHING TV NO DISTRESS NOTED. IV SITE IS FREE FROM REDNESS OR EDEMA CONITNUE TO OBSERVE AND MONITOR.
[2019-12-21 15:27] VITALS: BP 121/77
--- NOTE | 2019-12-21 16:45 | NUR ---
PT CONTINUES TO REST IN BED WITH NO DISTRESS NTOED. IV SITE IS FREE FROM REDNESS NESTOR VU
[2019-12-21 20:00] VITALS: BP 133/76
--- NOTE | 2019-12-21 20:10 | NUR ---
PT IN BED HIGH FOWLERS, NO S/O DISTRESS. HE IS WATCHING TV AND TALKATIVE. IVF RUNNING TO [facility]/SITE APPEARS HEALTHY AND PATENT. PT DENIES ANY NEEDS, BUT REQUESTED SOME ICEDTEA WHEN I RETURN. WILL PROVIDE EXTRA PILLOW FOR COMFORT AND ICEDTEA. ENCOURAGED PT TO CALL NEEDS ARISE, HE VERBALIZED UNDERSTANDING.
--- NOTE | 2019-12-21 23:50 | NUR ---
PT APPEARS TO BE SLEEPING, NO S/O DISTRESS NOTED. SOFT SONOROUS SOUNDS COMING FROM PT. LIGHTS OUT AND TV ARE ON. CALL LIGHT AT SIDE.
--- NOTE | 2019-12-22 02:05 | NUR ---
PT SLEEPING, NO S/O DISTRESS NOTED. CALL LIGHT AT SIDE.
[2019-12-22 04:00] VITALS: BP 147/92
[2019-12-22 05:46] LABS: HEMATOCRIT 43.4 % (39.0-50.0); HEMOGLOBIN 14.1 g/dl (14.0-18.0); IMMATURE GRANULOCYTES 0.8 % (0.0-5.0); MEAN CORPUSCULAR HGB 26.7 pG CALC (26.0-32.0); MEAN CORPUSCULAR HGB CONC 32.5 g/dL CAL (32.0-36.0); NEUT# 3.73 thou/uL (1.82-7.42); RED BLOOD COUNT 5.29 mill/uL (4.70-6.10); RED CELL DISTRI WIDTH 13.9 % (11.5-15.5)
--- NOTE | 2019-12-22 05:48 | NUR ---
PT SLEEPING, IV PUMP CLEARED. NO S/O DISTRESS NOTED. CALL LIGHT AT SIDE.
[2019-12-22 06:10] LABS: ALBUMIN 3.4 g/dL (3.2-5.0); ALKALINE PHOSPHATASE 63 u/l (38-126); ANION GAP 11 (6-22 (CALC)); BILIRUBIN, TOTAL 0.7 mg/dL (0.0-1.4); BUN 16 mg/dL (8-23); BUN/CREATININE RATIO 29 (12-20 (CALC)); CARBON DIOXIDE 24 mmol/l (22-30); CHLORIDE 104 mmol/l (95-108); CREATININE 0.6 mg/dL (0.7-1.3); GFR > 60 ML/MIN (>=60 (CALC)); GFR FOR AFR.AMER. > 60 ML/MIN (>=60 (CALC)); SGOT/AST 16 u/l (19-48); SODIUM 136 mmol/l (137-146)
[2019-12-22 07:57] VITALS: BP 140/91
--- NOTE | 2019-12-22 07:57 | NUR ---
RECIEVED REPORT FROM ANAT CADET. PT RESTING IN SEMI FOLWERS POSITION UPON ENTERING ROOM. INTRODUCED SELF TO PT AND DISUCSSED POC. PT IS A/O X3.ASSESSMENT AND VITALS OBTAINED. BP 140/91, HR 91, O2 97% ON ROOM AIR. RESPIRATIONS ARE EVEN AND UNLABORED WITH NO SIGNS OF DISTRESS NOTED. LUNG SOUNDS ARE CLEAR. HEART RHYTHM IS NORMAL. BOWEL SOUNDS ARE HYPOACTIVE, LAST REPORETD BM 12/21/2019. RADIAL AND PEDAL PULSES ARE STRONG WITH NORMAL CAPILLARY REFILL. #20G IN RAC FLUHSED, SITE APPEARS HEALTHY AND PATENT. SKIN IS WARM AND INTACT. DISCOLORATION TO BLE NOTED. PT DENIES ANY PAIN OR DISCOMFORTS AT THIS TIME. ALL SAFETY PRECAUTIONS ARE IN PLACE WIHT CALL LIGHT IN REACH. WILL CONTINUE TO MONITOR.
--- NOTE | 2019-12-22 08:57 | NUR ---
DR UMAÑA AT BEDSIDE DISCUSSING POC WITH PT
--- NOTE | 2019-12-22 11:35 | NUR ---
PT RESTING IN SEMI FOWLERS POSITION UPON ENTERING ROOM. RESPIRATIONS ARE EVEN AND UNLABORED WITH NO SIGNS OF DISTRESS NOTED. PRN OXYGEN AT BEDSIDE IF NEEDED. IV ANTIBIOTICS RUNNING WITH EASE, SITE APPEARS HEALTHY AND PATENT.TapastreetITTER EDUCATED PT ON NEED OF NEW IV SITE, PT VERBAILZED UNDERSTANDING. REQUEST TO START NEW IV LATER IN DAY. PT REQUEST AN UPDATE OF SPOUSE. TapastreetITTER INFORMED PT THAT ICU NURSE WAS UNABLE TO GIVE AN UPDATE AT THIS TIME. PT VERBAILZED UNDERSTANDING. ALL SAFETY AND ISOLATION PRECAUTIONS ARE IN PLACE WITH CALL LIGHT IN REACH. WILL CONTINUE TO MONITOR
[2019-12-22 16:00] VITALS: BP 146/83
--- NOTE | 2019-12-22 16:45 | NUR ---
PT RESTING IN SEMI FOWLERS POSITION UPON ENTERING ROOM. RESPIRATIONS ARE EVEN AND UNLABORED ON ROOM AIR. PT DENIES OF ANY PAIN OR DISCOMFORTS AT THIS TIME. IVF RUNNING PER ORDER, SITE APPEARS HEALTHY AND PATENT. ALL SAFETY AND ISOLATION PRECAUTIONS ARE IN PLACER WITH CALL LIGHT IN REACH. WILL CONTINUE TO MONITOR
[2019-12-22 18:55] VITALS: BP 135/73
--- NOTE | 2019-12-22 20:10 | NUR ---
RECEIVED REPORT FROM DAY NURSE PATIENT ALERT ORIENTED, AMBULATORY, WITH ONGOING IV ON RAC NS @ 10CC/HR INFUSING WELL, LBM 12/20, DENIES PAIN OR DISCOMFORTS, BS 299, NOTED TO HAVE NON PRODUCTIVE COUGH, EDEUCATED ON THE USE OF INCENTIVE SPIROMETER, WITH TRACE OF EDEMA NOTED ON BILAT ANKLE, STRONG PEDAL PULSE, BREATHING EVEN UNLABORED, DIMINISHED LUNG SOUNDS, CALL LIGHT AT REACH.
--- NOTE | 2019-12-23 | NUR ---
PATIENT APPEARS TO BE SLEEPING WITH EYES CLOSED, BREATHING EVEN UNLABORED, CALL LIGHT AT REACH.
--- NOTE | 2019-12-23 03:51 | NUR ---
PATIENT APPEARS TO BE SLEEPING NO DISCOMFORTS NOTED NOT IN DISTRESS CALL LIGHT AT REACH.
[2019-12-23 04:11] VITALS: BP 141/77
[2019-12-23 06:04] LABS: HEMATOCRIT 43.6 % (39.0-50.0); HEMOGLOBIN 14.1 g/dl (14.0-18.0); IMMATURE GRANULOCYTES 1.8 % (0.0-5.0); MEAN CORPUSCULAR HGB 26.5 pG CALC (26.0-32.0); MEAN CORPUSCULAR HGB CONC 32.3 g/dL CAL (32.0-36.0); NEUT# 3.23 thou/uL (1.82-7.42); RED BLOOD COUNT 5.32 mill/uL (4.70-6.10); RED CELL DISTRI WIDTH 13.8 % (11.5-15.5)
[2019-12-23 06:32] LABS: ALBUMIN 3.2 g/dL (3.2-5.0); ALKALINE PHOSPHATASE 60 u/l (38-126); ANION GAP 12 (6-22 (CALC)); BILIRUBIN, TOTAL 0.8 mg/dL (0.0-1.4); BUN 19 mg/dL (8-23); BUN/CREATININE RATIO 28 (12-20 (CALC)); C-REACTIVE PROTEIN 1.1 mg/dL (0-0.9); CARBON DIOXIDE 23 mmol/l (22-30); CHLORIDE 103 mmol/l (95-108); CREATININE 0.7 mg/dL (0.7-1.3); GFR > 60 ML/MIN (>=60 (CALC)); GFR FOR AFR.AMER. > 60 ML/MIN (>=60 (CALC)); POTASSIUM 4.1 mmol/l (3.5-5.1); SGOT/AST 15 u/l (19-48); SODIUM 134 mmol/l (137-146)
[2019-12-23 07:33] VITALS: BP 128/87
--- NOTE | 2019-12-23 07:33 | NUR ---
RECIEVED REPORT FROM ANAT PAGE. PT RESTING IN SEMI FOWLERS POSITION UPON ENTERING ROOM. INTRODUCED SELF TO PT AND DISCUSSED POC. PT IS A/O X3. ASSESSMENT AND VITALS COMPLETED. BP 128/87, HR 90, O2 96% ON ROOM AIR.LUNG SOUNDS ARE CLEAR. HEART RHYTHM IS NORMAL. BWOEL SOUNDS ARE HYPO ACTIVE, LAST REPORTED BM 12/23/2019. RADIAL AND PEDAL PULSES ARE STRONG. #22G IN RH RUNNING WITH IVF PER ORDER, SITE APPEARS HEALTHY AND PATENT. BLE APPEARS DISCOLORED, ELVATED ON PILLOWS. PT DENIES ANY PAIN OR DISCOFORTS AT THIS TIME. ALL SAFETY ANS ISOLATION PRECAUTIONS ARE IN PLACE WITH CALL LIGHT IN REACH. WILL CONTINUE TO MONITOR
--- NOTE | 2019-12-23 10:54 | NUR ---
PHYSCIAL THERAPY AT BEDSIDE
--- NOTE | 2019-12-23 11:28 | NUR ---
PT RESTING IN SEMI FOWLERS POSITION UPON ENTERING ROOM. RESPIRATORY REMIAN EVEN AND UNLABORED ON ROOM AIR. IVF RUNNING PER ORDER, SITE APPEARS HEALTHY AND PATENT. PT DENIES ANY PAIN AT THIS TIME. ALL SAFETY PRECAUTIONS ARE IN PLACE WITH CALL LIGHT IN REACH.WILL CONTINUE TO MONITOR.
[2019-12-23] MEDS ORDERED: DEXAMETHASON6 MG PO (13:33)
--- NOTE | 2019-12-23 13:58 | NUR ---
PT INFORMS HandelabraGamesITTER THAT LST BM [place] 2 DAYS AGO ON 12/21/2019.
--- NOTE | 2019-12-23 14:20 | NUR ---
PT ARRIVED BACK TO [facility] ROOM 283. PT SETTLED BACK INTO BED. IVF RUNNING PER ORDER, SITE APPEARS HEALTHY AND PATENT. PT DENIES ANY PAIN OR DISCOMFORTS. ALL SAFTEY PRECAUTIONS ARE IN PLACE WITH CALL LIGHT IN REACH. WILL CONTINUE TO MONITOR
--- NOTE | 2019-12-23 14:21 | NUR ---
DISCHARGE ORDERS IN PLACE. PT TO BE DISCHARGED TO [facility]. APPROVAL FOR PT TO SEEN IN ICU BEFORE DISCHARGED. PT TRANSPORTED TO ICU TO SEEN IN STABLE CONDITION VIA WHEELCHAIR ACOMMPAINED BY LEXA NEWTON
[2019-12-23 15:25] VITALS: BP 113/75
--- NOTE | 2019-12-23 16:50 | NUR ---
PT EDUCATED ON DISCHARGE INSTRUCTIONS AND NEW MEDICATION DEXAMETHASONE. PT VERBAILZED UNDERSTANDING. IV REMOVED WITH CATHATER STILL INTACT. AWAITING [facility] SCHEDULED AT 1700/1730. ALL SAFTEY AND ISOLATION PRECAUTIONS ARE IN PLACE WITH CALL LIGHT IN REACH. WILL CONTINUE TO MONITOR
--- NOTE | 2019-12-23 17:30 | NUR ---
Discharge instructions given. Patient verbalizes understanding of same. Discharged in stable condition via Wheelchair to Home with staff. All belongings sent with pt. PT DISCHARGED TO [facility] VIA MEDICAL TRANSPORT IN STABLE CONDITION. PT LEFT WITH ALL BELONGINGS AND DISCHARGE PAPERWORK
--- NOTE | 2019-12-23 17:47 | NUR ---
REPORT GIVEN TO NURSE AT [facility]
== END 2019-12-23 17:30 | DRG 177 ==
LOC: ED 10:28 → ED-I 14:29 → ED 15:10 → MS2 15:11
PROVIDERS: Emergency Medicine; Nurse Practitioner; Physician Assistant; ADMIT Internal Medicine; ATTEND Internal Medicine
DX: U07.1 COVID-19 (principal); J12.89 Other viral pneumonia; E87.2 Acidosis; J44.9 Chronic obstructive pulmonary disease, unspecified; I25.10 Atherosclerotic heart disease of native coronary artery without angina pectoris; E11.9 Type 2 diabetes mellitus without complications; I10 Essential (primary) hypertension; R53.1 Weakness; D64.9 Anemia, unspecified; G24.01 Drug induced subacute dyskinesia; E78.5 Hyperlipidemia, unspecified; F43.10 Post-traumatic stress disorder, unspecified; F32.9 Major depressive disorder, single episode, unspecified; M19.90 Unspecified osteoarthritis, unspecified site; Z79.01 Long term (current) use of anticoagulants; Z79.4 Long term (current) use of insulin; Z79.899 Other long term (current) drug therapy; Z88.6 Allergy status to analgesic agent; Z88.1 Allergy status to other antibiotic agents; Z88.5 Allergy status to narcotic agent; Z88.8 Allergy status to other drugs, medicaments and biological substances; Z86.711 Personal history of pulmonary embolism; Z98.42 Cataract extraction status, left eye; Z86.718 Personal history of other venous thrombosis and embolism; Z98.41 Cataract extraction status, right eye; Z96.1 Presence of intraocular lens; Z96.659 Presence of unspecified artificial knee joint
CPT/HCPCS: G0378

== ENCOUNTER 2020-10-27 07:45 | Emergency (ER) | payer MEDICARE, OTHER ==
[~2020-10-27] VITALS: Ht 177.8 cm; Wt 110.0 kg
[~2020-10-27 07:45] MED LIST changes: +AZITHROMYCIN500 MG PO; +DEXAMETHASON6 MG PO
[2020-10-27 09:52] VITALS: BP 123/80
== END 2020-10-27 09:55 ==
LOC: ED 07:45
DX: M25.512 Pain in left shoulder (principal); I10 Essential (primary) hypertension; E11.9 Type 2 diabetes mellitus without complications; J44.9 Chronic obstructive pulmonary disease, unspecified; F32.9 Major depressive disorder, single episode, unspecified; I25.10 Atherosclerotic heart disease of native coronary artery without angina pectoris; E78.5 Hyperlipidemia, unspecified; G20 Parkinson's disease; X50.0XXA Overexertion from strenuous movement or load, initial encounter; Z86.718 Personal history of other venous thrombosis and embolism; Z79.4 Long term (current) use of insulin

== ENCOUNTER 2021-01-28 05:59 | Day surgery (SDC) | payer MEDICARE, OTHER ==
[~2021-01-28 05:59] MED LIST changes: +CITALOPRAM10 M1 PO; +CLOPIDOGREL75 MG PO; +IPRATROPIU0.5 MG/3 M IN; +LEVEMIR100 UNIT SC; -LEVEMIR100 UNIT/M SC
[2021-01-28 08:18] VITALS: BP 122/72
== END 2021-01-28 08:15 | disposition home or self-care (01) ==
LOC: ORM 05:59
PROVIDERS: ATTEND Urology
PROC: 0VB03ZX Excision of Prostate, Percutaneous Approach, Diagnostic (ICD-10-PCS; principal; 2021-01-28)
PROC: BV49ZZZ Ultrasonography of Prostate and Seminal Vesicles (ICD-10-PCS; 2021-01-28)
DX: N40.3 Nodular prostate with lower urinary tract symptoms (principal); N40.1 Benign prostatic hyperplasia with lower urinary tract symptoms; N13.8 Other obstructive and reflux uropathy; R35.0 Frequency of micturition; I10 Essential (primary) hypertension; E11.42 Type 2 diabetes mellitus with diabetic polyneuropathy; J44.9 Chronic obstructive pulmonary disease, unspecified; I25.10 Atherosclerotic heart disease of native coronary artery without angina pectoris; E78.2 Mixed hyperlipidemia; F32.A Depression, unspecified; F41.9 Anxiety disorder, unspecified; G20 Parkinson's disease; E66.01 Morbid (severe) obesity due to excess calories; Z86.711 Personal history of pulmonary embolism; Z79.84 Long term (current) use of oral hypoglycemic drugs; Z79.01 Long term (current) use of anticoagulants; Z87.891 Personal history of nicotine dependence; Z86.718 Personal history of other venous thrombosis and embolism; Z79.4 Long term (current) use of insulin
CPT/HCPCS: J1956

== ENCOUNTER 2021-01-29 22:16 | Emergency (ER) | payer MEDICARE, OTHER ==
[~2021-01-29] VITALS: Ht 177.8 cm; Wt 108.0 kg
[2021-01-29 22:45] LABS: HEMATOCRIT 48.3 % (39.0-50.0); HEMOGLOBIN 15.7 g/dl (14.0-18.0); IMMATURE GRANULOCYTES 0.2 % (0.0-5.0); MEAN CELL VOLUME 88.6 fL CALC (80.0-100.0); MEAN CORPUSCULAR HGB 28.8 pG CALC (26.0-32.0); MEAN CORPUSCULAR HGB CONC 32.5 g/dL CAL (32.0-36.0); NEUT# 10.95 thou/uL (1.82-7.42); RED BLOOD COUNT 5.45 mill/uL (4.70-6.10); RED CELL DISTRI WIDTH 14.1 % (11.5-15.5)
[2021-01-29 22:58] LABS: ALKALINE PHOSPHATASE 63 u/l (38-126); AMYLASE 74 u/l (30-110); ANION GAP 15 (6-22 (CALC)); BUN 13 mg/dL (8-23); BUN/CREATININE RATIO 16 (12-20 (CALC)); CARBON DIOXIDE 21 mmol/l (22-30); CHLORIDE 106 mmol/l (95-108); CREATININE 0.8 mg/dL (0.7-1.3); GFR > 60 ML/MIN (>=60 (CALC)); GFR FOR AFR.AMER. > 60 ML/MIN (>=60 (CALC)); LIPASE 141 u/l (23-300); POTASSIUM 3.9 mmol/l (3.5-5.1); SGOT/AST 15 u/l (19-48); SODIUM 138 mmol/l (137-146)
[2021-01-29 23:00] LABS: BILIRUBIN, TOTAL 1.3 mg/dL (0.0-1.4); TOTAL PROTEIN 7.3 g/dL (6.3-8.2)
[2021-01-29 23:10] LABS: MYOGLOBIN 59 ng/mL (0 - 121)
[2021-01-30] MEDS ORDERED: PROMETHAZINE HY25 M1 PO (02:23)
[2021-01-30 06:00] VITALS: BP 114/59
== END 2021-01-30 08:30 ==
LOC: ED 22:16
PROVIDERS: Family Medicine
DX: K52.9 Noninfective gastroenteritis and colitis, unspecified (principal); I10 Essential (primary) hypertension; E11.9 Type 2 diabetes mellitus without complications; J44.9 Chronic obstructive pulmonary disease, unspecified; I25.10 Atherosclerotic heart disease of native coronary artery without angina pectoris; G20 Parkinson's disease; F32.A Depression, unspecified; E78.5 Hyperlipidemia, unspecified; F17.200 Nicotine dependence, unspecified, uncomplicated; Z86.711 Personal history of pulmonary embolism; Z79.4 Long term (current) use of insulin; Z79.84 Long term (current) use of oral hypoglycemic drugs; Z86.718 Personal history of other venous thrombosis and embolism

== ENCOUNTER 2021-02-08 12:56 | Emergency (ER) | payer MEDICARE, OTHER ==
[~2021-02-08] VITALS: Ht 177.8 cm; Wt 90.0 kg
[~2021-02-08 12:56] MED LIST changes: +PROMETHAZINE HY25 M1 PO
[2021-02-08 15:45] VITALS: BP 126/52
== END 2021-02-08 15:45 | disposition home or self-care (01) ==
LOC: ED 12:56
DX: J06.9 Acute upper respiratory infection, unspecified (principal); I10 Essential (primary) hypertension; E11.9 Type 2 diabetes mellitus without complications; J44.9 Chronic obstructive pulmonary disease, unspecified; I25.10 Atherosclerotic heart disease of native coronary artery without angina pectoris; E78.5 Hyperlipidemia, unspecified; G20 Parkinson's disease; F32.A Depression, unspecified; F17.200 Nicotine dependence, unspecified, uncomplicated; Z79.84 Long term (current) use of oral hypoglycemic drugs; Z86.711 Personal history of pulmonary embolism; Z79.4 Long term (current) use of insulin; Z86.718 Personal history of other venous thrombosis and embolism; Z20.822 Contact with and (suspected) exposure to COVID-19

== ENCOUNTER 2021-04-16 13:33 | Emergency (ER) | payer MEDICARE, OTHER | END 2021-04-16 13:59 | disposition left against medical advice (07) | LOC: ED 13:33 → LWOBS 13:59 | DX: Z53.21 Procedure and treatment not carried out due to patient leaving prior to being seen by health care provider (principal) ==